=== PATIENT | male | born 1990 | race Caucasian/White ===

== ENCOUNTER → 2018-05-03 15:15 | Outpatient (CLI) | payer MEDICAID, SELFPAY ==
[2018-05-05 09:16] LABS: Hep A Ab, IgM Negative (Negative); Hepatitis B Core Antibody IgM Negative (Negative); Hepatitis B Surface Antigen Negative (Negative)
[2018-05-05 12:14] LABS: Hepatitis C Antibody 0.2 s/co ratio (0.0-0.9)
== END ==
PROVIDERS: Visit Provider Emergency Medicine
DX: Z20.5 Contact with and (suspected) exposure to viral hepatitis (principal)
CPT/HCPCS: 36415; 80074

== ENCOUNTER 2020-02-03 16:11 | Emergency (ER) | payer OTHER, SELFPAY ==
--- NOTE | 2020-02-03 16:06 | ECG_ITS ---
APPROVED REPORT Exam: Resting ECG HR:81 bpm ECG Measurements Heart Rate 81 AXES SC 166 P 71 QRSd 82 QRS 72 QT 348 T 53 QTc 404 <Conclusion> Normal sinus rhythm with sinus arrhythmia Minimal voltage criteria for LVH, may be normal variant Borderline ECG Electronically signed by : Lico Alicea, 02/04/2020 15:06:44
[2020-02-03 16:11] VITALS: BP 134/79; PULSE 101; RESP 17; TEMP 36.9; O2SAT 99; BMI 26.6
--- NOTE | 2020-02-03 16:14 | XR_ITS ---
PROCEDURE: XR CHEST 2V CLINICAL HISTORY: Chest Pain Chest pain, smoker COMPARISON: No exams were available for comparison FINDINGS: The cardiomediastinal silhouette and pulmonary vascularity are within normal limits. The lungs are clear without infiltrates, suspicious nodules, or pleural effusions. There is calcified granuloma in the left lower lobe medially at 7 mm. Faint nodular opacity is present in the left midlung laterally at 6 mm and could be due to a granuloma as well. Calcified nodes are present the left hilum. No acute bony findings IMPRESSION: No acute finding. Old granulomatous disease Dictated b Damian Obrien MD 02/03/2020 16:30 Damian Obrien MD in [place] 02/03/2020 16:30
[2020-02-03 16:35] LABS: Basophils # 0.1 K/mm3 (0-0.2); Basophils % 0.5 % (0.1-2.0); Eosinophils # 0.5 K/mm3 (0.0-0.4); Eosinophils % 3.9 % (0.1-12.0); Hematocrit 48.2 % (42.0-52.0); Hemoglobin 16.8 g/dL (14.1-18.0); Lymphocytes # 3.6 K/mm3 (0.7-4.5); Lymphocytes % 30.6 % (10-50); Mean Corpuscular HGB Conc 34.8 g/dL (31.8-35.4); Mean Corpuscular Hemoglobin 31.2 pg (27.0-31.2); Mean Corpuscular Volume 89.8 fl (80-94); Mean Platelet Volume 7.6 fl (7.4-10.4); Monocytes # 0.6 K/mm3 (0.1-1.0); Monocytes % 4.9 % (1.7-9.3); Neutrophils % 60.1 % (37.0-80.0); Platelet Count 357 K/mm3 (142-424); Red Blood Count 5.36 M/mm3 (4.60-6.20); Red Cell Distribution Width 13.9 % (11.5-17.5); White Blood Count 11.7 K/mm3 (4.8-10.8)
[2020-02-03 16:37] VITALS: BP 136/75; PULSE 86; O2SAT 96
[2020-02-03 16:39] LABS: Chloride 104 mmol/L (98-107); Sodium 140 mmol/L (136-145)
[2020-02-03 16:40] LABS: Potassium 3.8 mmoL/L (3.5-5.1)
[2020-02-03 16:42] LABS: Blood Urea Nitrogen 12 mg/dl (9-20); Creatinine Clearance Estimated 155 mL/min (50-200); Estimated Glomerular Filt Rate 113 ml/min (>60); GFR (African American) 136 ML/MIN (>60)
[2020-02-03 16:43] LABS: Anion Gap 11.8 mEq/L (5-15); Calcium 10.2 mg/dl (8.4-10.2); Carbon Dioxide 28 mmol/L (22.0-30.0); Glucose 100 mg/dl (74-100)
--- NOTE | 2020-02-03 16:58 | HMH.EDCP ---
ED Disposition Clinical Impression: Chest pain, Atypical chest pain, Costalchondritis Disposition: Home, Self-Care Condition on Discharge: Good Prescriptions: Pantoprazole Sodium [Protonix 40mg tablet] 40 mg PO DAILY 30 Days #30 tab Transmission Status: Pending to [facility] #[id number] Referrals: PCP,No [Primary Care Provider] - - Critical Care Critical Care Time: No Attestation: On 02/03/20, the high probability of a clinically significant, sudden or life threatening deterioration of the following system(s) required my full and direct attention, intervention and personal management. The time I documented below is in addition to time spent performing reported procedures but includes the following listed in this critical care notation. Medical Decision Making - Medical Records Medical records reviewed: Yes: I reviewed the patient's medical records. - Maicol Inquiry Pt receiving controlled substance: No Vital Signs: 02/03/20 16:11 02/03/20 16:37 Temperature 98.4 F Temperature Source Oral Pulse Rate [Right] 101 H 86 Respiratory Rate 17 Blood Pressure [Right Arm] 134/79 136/75 Blood Pressure Mean [Right Arm] 97 95 Blood Pressure Source [Right Arm] Automatic Cuff Blood Pressure Position [Right Arm] Sitting 02 Sat by Pulse Oximetry 99 96 Oxygen Delivery Method Room Air Room Air - Lab Data Lab results reviewed: Yes: I reviewed the patient's lab results. Lab Results 02/03/20 16:20: WBC 11.7 H, RBC 5.36, Hgb 16.8, Hct 48.2, MCV 89.8, MCH 31.2, MCHC 34.8, RDW 13.9, Plt Count 357, MPV 7.6, Neut % (Auto) 60.1, Lymph % (Auto) 30.6, [place] % (Auto) 4.9, Eos % (Auto) 3.9, Baso % (Auto) 0.5, Neut # (Auto) 7.0, Lymph # (Auto) 3.6, [place] # (Auto) 0.6, Eos # (Auto) 0.5 H, Baso # (Auto) 0.1 Result diagrams: 02/03/20 16:20 Orders (Tests/Meds): ORDERS Category Date Time Status Basic Metabolic Panel Stat Lab 02/03/20 16:20 Received Troponin I Q3H Lab 02/03/20 19:15 Ordered Troponin I Q3H Lab 02/03/20 22:15 Ordered Troponin I Stat Lab 02/03/20 16:20 Received - Radiology Data #1 Image(s): Chest Preliminary Findings: Normal/NAD - ECG Data Tracing #1 I reviewed this ECG and interpreted as documented below: Normal Sinus Rhythm: Yes - REN Score for Non-Stemi Age of Patient: <30 years old Chest Pain HPI - General Chief Complaint: Chest Pain Stated Complaint: chest pain Time Seen by Provider: 02/03/20 16:46 Mode of Arrival: Ambulatory Limitations: No Limitations Description of Symptoms (Recalled from ER Triage Doc. by RN): Pt states since this am he has had midsternal CP that hurts when he breathes in and coughs, denies fever, soa, or contact with the COVID19. - History of Present Illness HPI narrative: 29-year-old male presents the ED having some substernal chest pain. He states when he took deep breaths he may notice the chest pain he also states that the pain did radiate down his left arm. Patient states this pain is been going on for 2 to 3 days. Patient denies any other symptoms patient denies any other health conditions. Patient rates his pain 3 out of 10 classifies a sharp colicky pain that comes and goes exacerbation factors include increasing intrathoracic pressure and alleviating factors include rest.Patient denies any recent cough or shortness of breath, patient denies any sore throat or headache, patient denies any loss of taste or smell, patient denies any malaise or fatigue, patient denies any abdominal pain nausea vomiting or diarrhea. - Related Data Previous Rx's Medication Instructions Recorded amoxicillin 500 mg tablet 500 mg PO BID 10 Days #20 tab 01/24/20 Pantoprazole Sodium [Protonix 40mg 40 mg PO DAILY 30 Days #30 tab 02/03/20 tablet] Allergies Allergy/AdvReac Type Severity Reaction Status Date / Time No Known Allergies Allergy Verified 01/24/20 13:30 [facility] History - Hepatitis A Screen Drug use history?: No
[2020-02-03 16:59] LABS: Troponin I < 0.01 ng/ml (0.00-0.034)
[2020-02-03 17:47] VITALS: BP 136/80; PULSE 80; RESP 17; TEMP 36.7; O2SAT 100
== END 2020-02-03 17:48 | disposition home or self-care (01) ==
PROVIDERS: Emergency Provider Family Medicine
DX: R07.89 Other chest pain (principal); M94.0 Chondrocostal junction syndrome [Tietze]; F17.210 Nicotine dependence, cigarettes, uncomplicated
CPT/HCPCS: 71046; 80048; 84484; 85025; 93005; 99283

== ENCOUNTER 2020-03-14 12:36 | Emergency (ER) | payer OTHER, SELFPAY ==
--- NOTE | 2020-03-14 12:42 | HMH.EDUTC ---
[facility] [place] Disposition Clinical Impression: Bilateral otitis media Qualifiers: Otitis media type: suppurative Chronicity: acute Recurrence: non-recurrent Spontaneous tympanic membrane rupture: without spontaneous rupture Qualified Code(s): H66.003 - Acute suppurative otitis media without spontaneous rupture of ear drum, bilateral Disposition: Home, Self-Care Condition on Discharge: Good Instructions: DI for Otitis Media (Middle Ear Infection)-Child Prescriptions: predniSONE [Deltasone 20mg tablet] 20 mg PO BID 5 Days #10 tab Transmission Status: Pending to [facility] # Cefdinir [Omnicef 300mg Capsule] 300 mg PO BID #20 cap Transmission Status: Pending to [facility] # Pseudoephedrine HCl [Sudafed 12 Hour 120mg Tab] 120 mg PO Q12 10 Days #20 tab Transmission Status: Pending to [facility] # Referrals: Tomasz Pascal MD [Primary Care Provider] - Time of Disposition: 12:47 Medical Decision Making - Maicol Inquiry Pt receiving controlled substance: No [facility] [place] HPI - General Stated complaint: both ears hurt Time Seen by Provider: 03/14/20 12:44 - History of Present Illness Provider Complaint: Bilateral ear pain X 5-6 days. Started on Amoxil earlier this week by PCP with no improvement. No fever. Onset (ago): day(s) (6) Treatments prior to arrival: other (Amoxil) - Related Data Previous Rx's Medication Instructions Recorded promethazine 25 mg tablet 25 mg PO TID PRN #10 tab 03/05/20 amoxicillin 875 mg tablet 875 mg PO BID #20 tab 03/11/20 Cefdinir [Omnicef 300mg Capsule] 300 mg PO BID #20 cap 03/14/20 Pseudoephedrine HCl [Sudafed 12 120 mg PO Q12 10 Days #20 tab 03/14/20 Hour 120mg Tab] predniSONE [Deltasone 20mg 20 mg PO BID 5 Days #10 tab 03/14/20 tablet] Allergies Allergy/AdvReac Type Severity Reaction Status Date / Time No Known Allergies Allergy Verified 03/11/20 10:41 [facility] History - Hepatitis A Screen Attestation statement:: This patient has been screened for Hepatitis A risk factors. I have reviewed the patient's past medical history: Yes Medical History: Reports:: Gastroesophageal Reflux Disease(GERD) Denies:: Chronic Obstructive Pulmonary Disease (COPD), Diabetes Mellitus Type 1, Diabetes Mellitus Type 2, Hypertension Other Medical History: Reports: Sinus Problems Laterality Cases: Bilateral: Myringotomy (Ear Tubes) Other Surgeries: Yes: No Previous Surgery, Appendectomy Amputation: No Fractures: No - Social History Smoking Status: Current every day smoker Tobacco Type: cigarettes # Packs/Day (cigarettes): 1 Alcohol Intake: never Substance Use Type: denies use Occupational Status: employed Housing: house Household Members: family Family Hx:: Non-contributory ROS Obtained: Yes All systems reviewed & no additional complaints - Constitutional Constitutional: Denies fever(s) - ENT Ears, Nose, Mouth, and Throat: Reports otalgia Physical Exam - General General appearance: alert, in no apparent distress - Head Head exam: atraumatic, normocephalic, normal inspection - Eye Eye exam: Present: normal appearance, PERRL, EOMI - ENT ENT exam: Present: normal exam, normal oropharynx, mucous membranes moist, normal external ear exam - Expanded ENT Exam TM/Canal exam: Bilateral TM: erythema, bulging - Neck Neck exam: Present: normal inspection, full ROM, trachea midline. Absent: meningismus, lymphadenopathy - Chest Chest inspection: Present: normal inspection, symmetric chest wall rise. Absent: tenderness - Respiratory Respiratory exam: Present: normal lung sounds bilaterally. Absent: respiratory distress - Cardiovascular Cardiovascular exam: Present: regular rate, normal rhythm. Absent: JVD - Abdominal Exam Abdominal exam: Present: soft, normal bowel sounds. Absent: distention, tenderness, guarding - Extremities Exam Extremities exam: Present: normal inspection, full ROM, normal capillary refill.
[2020-03-14 12:43] VITALS: BP 137/75; PULSE 79; RESP 18; TEMP 36.6; O2SAT 97; BMI 26.6
[2020-03-14 12:52] VITALS: BP 137/75; PULSE 79; RESP 18; TEMP 36.6; O2SAT 97
== END 2020-03-14 12:53 | disposition home or self-care (01) ==
PROVIDERS: Emergency Provider Physician Assistant; PCP Emergency Medicine
DX: H66.003 Acute suppurative otitis media without spontaneous rupture of ear drum, bilateral (principal); K21.9 Gastro-esophageal reflux disease without esophagitis; F17.210 Nicotine dependence, cigarettes, uncomplicated
CPT/HCPCS: 99201

== ENCOUNTER → 2020-04-30 16:04 | Outpatient (CLI) | payer OTHER, SELFPAY ==
[2020-05-02 16:07] LABS: Covid-19 Nasal PCR Sendout Lex Not Detected
== END ==
PROVIDERS: PCP Nurse Practitioner Family; Visit Provider Nurse Practitioner Family
DX: Z03.818 Encounter for observation for suspected exposure to other biological agents ruled out (principal)
CPT/HCPCS: U0004

== ENCOUNTER → 2020-07-16 12:59 | Outpatient (CLI) | payer OTHER, SELFPAY ==
[2020-07-17 11:09] LABS: Covid-19 Nasal PCR Sendout P&C NEGATIVE
== END ==
PROVIDERS: PCP Emergency Medicine; Visit Provider Nurse Practitioner Family
DX: Z20.822 Contact with and (suspected) exposure to COVID-19 (principal)
CPT/HCPCS: U0004

== ENCOUNTER 2020-10-27 14:18 | Emergency (ER) | payer OTHER, SELFPAY ==
[2020-10-27 14:20] VITALS: BP 136/91; PULSE 86; RESP 19; TEMP 36.7; O2SAT 98; BMI 26.6
--- NOTE | 2020-10-27 15:13 | HMH.EDUTC ---
[facility] [place] Disposition Clinical Impression: Acute bronchitis Qualifiers: Bronchitis organism: unspecified organism Qualified Code(s): J20.9 - Acute bronchitis, unspecified Sinusitis Qualifiers: Sinusitis location: unspecified location Chronicity: acute Recurrence: non-recurrent Qualified Code(s): J01.90 - Acute sinusitis, unspecified Disposition: Home, Self-Care Condition on Discharge: Good Instructions: DI for Sinusitis, DI for Acute Bronchitis Additional Instructions: Drink plenty of fluids. Take tylenol or ibuprofen for pain or fever. Take the medications as directed. Follow up with your regular doctor. GO TO THE ER FOR ANY WORSENING SYMPTOMS Prescriptions: Brompheniramine/Pseudoephed/Dm [Bromfed Dm Cough Syrup] 5 ml PO Q6HP PRN #240 syrup PRN Reason: Cough Transmission Status: Received by [facility] #[id number] predniSONE [Prednisone 20mg Tab] 20 mg PO BID 4 Days #8 tab Transmission Status: Received by [facility] # Azithromycin [Z-Martin 250mg Tab*] 250 mg PO UD DOSE PK #6 tab Transmission Status: Received by [facility] # Referrals: Tomasz Pascal MD [Primary Care Provider] - Forms: Work/School Release Time of Disposition: 15:18 Medical Decision Making - Medical Records Medical records reviewed: No: I reviewed the patient's medical records. - Maicol Inquiry Pt receiving controlled substance: No Vital Signs: 10/27/20 14:20 10/27/20 15:31 Temperature 98.0 F 98.0 F Temperature Source Oral Pulse Rate 86 Pulse Rate [Right Brachial] 86 Respiratory Rate 19 19 Blood Pressure 136/91 H Blood Pressure [Right Arm] 136/91 H Blood Pressure Mean [Right Arm] 106 Blood Pressure Source [Right Arm] Automatic Cuff Blood Pressure Position [Right Arm] Sitting 02 Sat by Pulse Oximetry 98 Oxygen Delivery Method Room Air [facility] [place] HPI - General Stated complaint: congestion, sinus pain Time Seen by Provider: 10/27/20 14:25 Mode of Arrival: Ambulatory Source of Information: Patient Limitations: No Limitations Description of Symptoms (Recalled from Triage Doc. by RN): PATIENT C/O CHEST AND SINUS CONGESTION WITH BILATERAL EAR PAIN SINCE LAST NIGHT HEENT Symptoms (Recalled from RN notes): Yes Resp Symptoms (Recalled from RN notes): No Skin Symptoms (Recalled from RN notes): No MS Symptoms (Recalled from RN notes): No Functional Status (Recalled from RN notes): WNL - History of Present Illness Provider Complaint: He states that he has had sinus and chest congestion for the past 3 days - Related Data Previous Rx's Medication Instructions Recorded Azithromycin [Z-Martin 250mg Tab*] 250 mg PO UD DOSE PK #6 tab 10/27/20 Brompheniramine/Pseudoephed/Dm 5 ml PO Q6HP PRN #240 syrup 10/27/20 [Bromfed Dm Cough Syrup] predniSONE [Prednisone 20mg 20 mg PO BID 4 Days #8 tab 10/27/20 Tab] Allergies Allergy/AdvReac Type Severity Reaction Status Date / Time No Known Allergies Allergy Verified 07/16/20 11:32 - Worker's Comp Is this a Worker's Comp case?: No [facility] History - Hepatitis A Screen Drug use history?: No High risk sexual behaviors?: No History of sexually transmitted infection?: No Currently employed?: No Childcare worker?: No Do you have indoor plumbing?: Yes Do you have electricity?: Yes Attestation statement:: This patient has been screened for Hepatitis A risk factors. I have reviewed the patient's past medical history: Yes Medical History: Reports:: Gastroesophageal Reflux Disease(GERD) Denies:: Chronic Obstructive Pulmonary Disease (COPD), Diabetes Mellitus Type 1, Diabetes Mellitus Type 2, Hypertension Other Medical History: Reports: Sinus Problems Laterality Cases: Bilateral: Myringotomy (Ear Tubes) Other Surgeries: Yes: No Previous Surgery, Appendectomy Amputation: No Fractures: No - Social History Smoking Status: Current every day smoker Tobacco Type: cigarettes # Packs/Day (cigarettes): 1 Alcohol Intake: never
[2020-10-27 15:31] VITALS: BP 136/91; PULSE 86; RESP 19; TEMP 36.7; O2SAT 98
== END 2020-10-27 15:36 | disposition home or self-care (01) ==
PROVIDERS: Emergency Provider Nurse Practitioner Family; PCP Emergency Medicine
DX: J20.9 Acute bronchitis, unspecified (principal); J01.90 Acute sinusitis, unspecified; K21.9 Gastro-esophageal reflux disease without esophagitis; F17.210 Nicotine dependence, cigarettes, uncomplicated
CPT/HCPCS: 99202; G0463

== ENCOUNTER 2020-11-24 09:59 | Emergency (ER) | payer OTHER, SELFPAY ==
[2020-11-24 10:25] VITALS: BP 129/89; PULSE 78; RESP 14; TEMP 36.6; O2SAT 99; BMI 26.6
--- NOTE | 2020-11-24 10:30 | HMH.EDUTC ---
[facility] – [place], [place] Disposition Clinical Impression: Torticollis Disposition: Home, Self-Care Condition on Discharge: Good Instructions: Torticollis, DI for Torticollis Additional Instructions: Go home and rest. It would be best if you rested tomorrow too. No heavy lifting. No twisting. Take the oral medications as directed. The muscle relaxer (cyclobenzaprine-flexeril) will make you drowsy, so don't drive or operate heavy machinery after taking it. Follow up with your regular doctor. GO TO THE ER FOR ANY WORSENING SYMPTOMS OR CONCERN, ESPECIALLY BOWEL OR BLADDER ISSUES, SADDLE AREA NUMBNESS, FEVER, ETC Prescriptions: Cyclobenzaprine HCl [Cyclobenzaprine 10mg Tab] 10 mg PO BIDP PRN #20 tab PRN Reason: Muscle Spasm Transmission Status: Received by [facility] # methylPREDNISolone [Medrol] 4 mg PO DIRECTED 6 Days #21 tab.ds.pk Transmission Status: Received by [facility] # Referrals: Tomasz Pascal MD [Primary Care Provider] - Forms: Work/School Release Time of Disposition: 10:37 Medical Decision Making - Medical Records Medical records reviewed: No: I reviewed the patient's medical records. - Maicol Inquiry Pt receiving controlled substance: No Vital Signs: 11/24/20 10:25 11/24/20 10:54 Temperature 97.8 F 0 F L Temperature Source Oral Pulse Rate 0 L Pulse Rate [Right] 78 Respiratory Rate 14 0 L Blood Pressure 000/00 L Blood Pressure [Right Arm] 129/89 Blood Pressure Mean [Right Arm] 102 02 Sat by Pulse Oximetry 99 [facility] [place], [place] HPI - General Stated complaint: neck pain Time Seen by Provider: 11/24/20 10:30 Mode of Arrival: Ambulatory Source of Information: Patient Limitations: No Limitations Description of Symptoms (Recalled from Triage Doc. by RN): pt woke up with neck pain. it radiates from his lower neck to the base of his head. pt states its sharp and shooting, worsens with movement of his head to the side or looking down pain is 10/10. HEENT Symptoms (Recalled from RN notes): No Resp Symptoms (Recalled from RN notes): No Skin Symptoms (Recalled from RN notes): No MS Symptoms (Recalled from RN notes): Yes (neck pain) Functional Status (Recalled from RN notes): na - History of Present Illness Provider Complaint: He c/o neck pain and stiffness for the past 2 days. He denies any injury or recent falls or recent mva. He states that he woke up like this 2 days ago. Twisting his neck makes his pain worse. He denies any fever or chills. - Related Data Previous Rx's Medication Instructions Recorded Azithromycin [Z-Martin 250mg Tab*] 250 mg PO UD DOSE PK #6 tab 10/27/20 Brompheniramine/Pseudoephed/Dm 5 ml PO Q6HP PRN #240 syrup 10/27/20 [Bromfed Dm Cough Syrup] predniSONE [Prednisone 20mg 20 mg PO BID 4 Days #8 tab 10/27/20 Tab] Cyclobenzaprine HCl 10 mg PO BIDP PRN #20 tab 11/24/20 [Cyclobenzaprine 10mg Tab] methylPREDNISolone [Medrol] 4 mg PO DIRECTED 6 Days #21 11/24/20 tab.ds.pk Allergies Allergy/AdvReac Type Severity Reaction Status Date / Time No Known Allergies Allergy Verified 07/16/20 11:32 - Worker's Comp Is this a Worker's Comp case?: No [facility] History - Hepatitis A Screen Drug use history?: No High risk sexual behaviors?: No History of sexually transmitted infection?: No Currently employed?: No Childcare worker?: No Do you have indoor plumbing?: Yes Do you have electricity?: Yes Attestation statement:: This patient has been screened for Hepatitis A risk factors. I have reviewed the patient's past medical history: Yes Medical History: Reports:: Gastroesophageal Reflux Disease(GERD) Denies:: Chronic Obstructive Pulmonary Disease (COPD), Diabetes Mellitus Type 1, Diabetes Mellitus Type 2, Hypertension Other Medical History: Reports: Sinus Problems Laterality Cases: Bilateral: Myringotomy (Ear Tubes) Other Surgeries: Yes: No Previous Surgery, Appendectomy Amputation: No Fractures: No - Social History Smoking
[2020-11-24 10:54] VITALS: BP 000/00; PULSE 0; RESP 0; TEMP -17.7; TEMP 0
== END 2020-11-24 11:00 | disposition home or self-care (01) ==
PROVIDERS: Emergency Provider Nurse Practitioner Family; PCP Emergency Medicine
DX: M43.6 Torticollis (principal); K21.9 Gastro-esophageal reflux disease without esophagitis
CPT/HCPCS: 99202; G0463

== ENCOUNTER 2020-12-09 11:58 | Emergency (ER) | payer OTHER, SELFPAY ==
[2020-12-09 12:15] VITALS: BP 139/85; PULSE 93; RESP 14; TEMP 36.8; O2SAT 97; BMI 26.9
--- NOTE | 2020-12-09 12:32 | HMH.EDUTC ---
[facility] [place] Disposition Clinical Impression: Otitis media Qualifiers: Otitis media type: unspecified Laterality: left Qualified Code(s): H66.92 - Otitis media, unspecified, left ear Disposition: Home, Self-Care Condition on Discharge: Good Instructions: Middle Ear Infection, Amoxicillin Additional Instructions: *Monitor Temp, Over the counter Motrin or Tylenol as directed/as needed Tylenol every 4 hours and Motrin every 6 hours (as long as your family doctor has told you that you can take it) for fever or pain. and straight to ER if unable to lower temp less than 101.0 after medication given *Warm salt water gargles may help to soothe the throat *Throat Lozenges *Warm fluids like tea with honey may help to soothe the throat *Sleep elevated *Humidifier/Vaporizer *Flonase 2 sprays in each nostril daily but be aware that it may take 2-3 days before you notice improvement Your throat swab was sent for culture. Those results are typically sent to your primary care. Be sure to follow up in 2-3 days with your family doctor/primary care physician if no improvement so they can review those result and treat if necessary. If you don?t have a primary care doctor, I recommend you get one but in the mean time, you will have to return to a walk in clinic Follow up IMMEDIATELY for new or worsening symptoms or no Noticeable improvement over the next 48-72 hours. 911 for difficulty breathing or swallowing Prescriptions: Amoxicillin [Amoxicillin 875MG Tab] 875 mg PO Q12H #14 tab Transmission Status: Pending to [facility] # Fluticasone Propionate [Flonase 50mcg nasal spray 16gm] 1 spr NS DAILY #1 bottle Transmission Status: Pending to [facility] # Referrals: Tomasz Pascal MD [Primary Care Provider] - As needed Time of Disposition: 12:37 Medical Decision Making - Maicol Inquiry Pt receiving controlled substance: No Maicol was queried for this patient: No Vital Signs: 12/09/20 12:15 Temperature 98.2 F Temperature Source Oral Pulse Rate [Right] 93 H Respiratory Rate 14 Blood Pressure [Right Arm] 139/85 Blood Pressure Mean [Right Arm] 103 Blood Pressure Source [Right Arm] Automatic Cuff 02 Sat by Pulse Oximetry 97 - Lab Data Lab results reviewed: Yes: I reviewed the patient's lab results. [facility] [place] HPI - General Stated complaint: ear pain Time Seen by Provider: 12/09/20 12:33 Mode of Arrival: Ambulatory Source of Information: Patient Limitations: No Limitations Description of Symptoms (Recalled from Triage Doc. by RN): pt states he is having bilateral ear pain and a scratchy throat. his daughter recently had strep. HEENT Symptoms (Recalled from RN notes): Yes (bilateral ear aches and scratchy throat) Resp Symptoms (Recalled from RN notes): No Skin Symptoms (Recalled from RN notes): No MS Symptoms (Recalled from RN notes): No Functional Status (Recalled from RN notes): na - History of Present Illness Provider Complaint: Patient state that he has been having bilateral ear pain on and off for a couple of weeks and for the last two days it has continued to get worse especially in left ear State that he has also had scratchy throat and his daughter recently had strep throat and he wasnted to get tested - Related Data Previous Rx's Medication Instructions Recorded Azithromycin [Z-Martin 250mg Tab*] 250 mg PO UD DOSE PK #6 tab 10/27/20 Brompheniramine/Pseudoephed/Dm 5 ml PO Q6HP PRN #240 syrup 10/27/20 [Bromfed Dm Cough Syrup] predniSONE [Prednisone 20mg 20 mg PO BID 4 Days #8 tab 10/27/20 Tab] Cyclobenzaprine HCl 10 mg PO BIDP PRN #20 tab 11/24/20 [Cyclobenzaprine 10mg Tab] methylPREDNISolone [Medrol] 4 mg PO DIRECTED 6 Days #21 11/24/20 tab.ds.pk Amoxicillin [Amoxicillin 875MG 875 mg PO Q12H #14 tab 12/09/20 Tab] Fluticasone Propionate [Flonase 1 spr NS DAILY #1 bottle 12/09/20 50mcg nasal spray 16gm] Allergies Allergy/AdvReac Type Severity Reaction Status Date /
[2020-12-09 12:43] LABS: UTC Strep Screen (Rapid) Negative (Negative)
[2020-12-09 12:52] VITALS: BP 132/85; PULSE 92; RESP 14; TEMP 36.8
== END 2020-12-09 12:58 | disposition home or self-care (01) ==
PROVIDERS: Emergency Provider Nurse Practitioner; PCP Emergency Medicine
DX: H66.92 Otitis media, unspecified, left ear (principal); K21.9 Gastro-esophageal reflux disease without esophagitis; F17.210 Nicotine dependence, cigarettes, uncomplicated
CPT/HCPCS: 87880; 99202; G0463

== ENCOUNTER 2021-02-23 12:56 | Emergency (ER) | payer OTHER, SELFPAY ==
[2021-02-23 14:45] VITALS: BP 123/80; PULSE 61; RESP 18; TEMP 36.9; O2SAT 99; BMI 29.0
[2021-02-23 15:12] LABS: UTC Strep Screen (Rapid) Negative (Negative)
--- NOTE | 2021-02-23 15:19 | HMH.EDUTC ---
[facility] [place] Disposition Clinical Impression: Otitis media Qualifiers: Otitis media type: unspecified Laterality: bilateral Qualified Code(s): H66.93 - Otitis media, unspecified, bilateral Otitis externa Qualifiers: Otitis externa type: unspecified type Chronicity: unspecified Laterality: left Qualified Code(s): H60.92 - Unspecified otitis externa, left ear Disposition: Home, Self-Care Condition on Discharge: Good Instructions: Middle Ear Infection, DI for Otitis Externa Additional Instructions: Take medication as prescribed Use drops as prescribed Over the counter Motrin and/or Tylenol for fever or pain as directed on package Follow up with your Family Doctor if no improvement or any worsening of symptoms Return if needed Straight to ER if any life threatening symptoms Prescriptions: Amoxicillin [Amoxicillin 875MG Tab] 875 mg PO Q12H #20 tab Transmission Status: Pending to [facility] # Neomycin/Polymyxin B Sulf/Hc [Zxjfhood-Vwhjfgtet-AQ Otic Susp 10mL] 4 drops EAR-LEFT QID 7 Days #10 ml Transmission Status: Pending to [facility] # Referrals: Tomasz Pascal MD [Primary Care Provider] - As needed Time of Disposition: 15:25 Medical Decision Making - Maicol Inquiry Pt receiving controlled substance: No Maicol was queried for this patient: No Vital Signs: 02/23/21 14:45 Temperature 98.4 F Temperature Source Oral Pulse Rate [Right Brachial] 61 Respiratory Rate 18 Blood Pressure [Right Arm] 123/80 Blood Pressure Mean [Right Arm] 94 Blood Pressure Source [Right Arm] Automatic Cuff Blood Pressure Position [Right Arm] Sitting 02 Sat by Pulse Oximetry 99 Oxygen Delivery Method Room Air - Lab Data Lab results reviewed: Yes: I reviewed the patient's lab results. Lab Results 02/23/21 14:47: Strep Scn Rapid Clinic Negative Orders (Tests/Meds): ORDERS Category Date Time Status Strep Screen Confirmation Stat Micro 02/23/21 14:47 Received [facility] [place] HPI - General Stated complaint: sore throat ear pain Time Seen by Provider: 02/23/21 15:19 Mode of Arrival: Ambulatory Source of Information: Patient Limitations: No Limitations Description of Symptoms (Recalled from Triage Doc. by RN): PATIENT C/O BILATERAL EAR PAIN AND SORE THROAT X 2 DAYS. STATES HE WAS LYING IN GRAVEL AND THINKS HE MAY HAVE GOTTEN A PIECE OF GRAVEL IN LEFT EAR HEENT Symptoms (Recalled from RN notes): No Resp Symptoms (Recalled from RN notes): No Skin Symptoms (Recalled from RN notes): No MS Symptoms (Recalled from RN notes): No Functional Status (Recalled from RN notes): WNL - History of Present Illness Provider Complaint: Patient state that he has been having pain in both ears and throat for 2 days that has continued to get worse State that left ear is sore to the touch State sthat he was laying in gravel working on something when he thinks one may have went into his ear - Related Data Previous Rx's Medication Instructions Recorded Amoxicillin [Amoxicillin 875MG 875 mg PO Q12H #20 tab 02/23/21 Tab] Neomycin/Polymyxin B Sulf/Hc 4 drops EAR-LEFT QID 7 Days #10 ml 02/23/21 [Oomcdqob-Jqmvyrlwb-EJ Otic Susp 10mL] Allergies Allergy/AdvReac Type Severity Reaction Status Date / Time No Known Allergies Allergy Verified 12/09/20 12:19 - Worker's Comp Is this a Worker's Comp case?: No [facility] History - Hepatitis A Screen Drug use history?: No High risk sexual behaviors?: No History of sexually transmitted infection?: No Currently employed?: No Childcare worker?: No Do you have indoor plumbing?: Yes Do you have electricity?: Yes Attestation statement:: This patient has been screened for Hepatitis A risk factors. I have reviewed the patient's past medical history: Yes Medical History: Reports:: Gastroesophageal Reflux Disease(GERD) Denies:: Chronic Obstructive Pulmonary Disease (COPD), Diabetes Mellitus Type 1, Diabetes Mellitus Type 2, Hypertension Other Medical History:
[2021-02-23 15:27] VITALS: BP 123/80; PULSE 61; RESP 18; TEMP 36.9; O2SAT 99
== END 2021-02-23 15:29 | disposition home or self-care (01) ==
PROVIDERS: Emergency Provider Nurse Practitioner; PCP Emergency Medicine
DX: H66.93 Otitis media, unspecified, bilateral (principal); H60.92 Unspecified otitis externa, left ear; K21.9 Gastro-esophageal reflux disease without esophagitis; F17.210 Nicotine dependence, cigarettes, uncomplicated
CPT/HCPCS: 87880; 99202; G0463

== ENCOUNTER 2021-06-28 15:58 | Emergency (ER) | payer OTHER, SELFPAY ==
[2021-06-28 17:50] VITALS: BP 140/86; PULSE 72; RESP 18; TEMP 36.6; O2SAT 99; BMI 28.3
--- NOTE | 2021-06-28 18:23 | HMH.EDUTC ---
[facility] [place] Disposition Clinical Impression: Sinusitis Qualifiers: Sinusitis location: unspecified location Chronicity: unspecified Qualified Code(s): J32.9 - Chronic sinusitis, unspecified Disposition: Home, Self-Care Condition on Discharge: Good Instructions: Sinusitis, DI for Sinusitis, Middle Ear Infection Additional Instructions: *Monitor Temp, Over the counter Motrin or Tylenol as directed/as needed Tylenol every 4 hours and Motrin every 6 hours (as long as your family doctor has told you that you can take it) for fever or pain. and straight to ER if unable to lower temp less than 101.0 after medication given *Warm salt water gargles may help to soothe the throat *Throat Lozenges *Warm fluids like tea with honey may help to soothe the throat *Sleep elevated *Humidifier/Vaporizer *Flonase 2 sprays in each nostril daily but be aware that it may take 2-3 days before you notice improvement Follow up IMMEDIATELY for new or worsening symptoms or no Noticeable improvement over the next 48-72 hours. 911 for difficulty breathing or swallowing You were tested for today for COVID19 your test result should be back in the next 24-48 hours, you may Check your results on the [facility] My Health Portal if you have trouble logging on you may call You was given a handout with instructions for Self Quarantine and Self isolation for while you wait on test results and what to do if they are positive If you are positive the Health Dept will be contacting you also Make sure to take your Vitamins Vit. C Vit D and Zinc if you can take them Prescriptions: Amoxicillin/Potassium Clav [Augmentin 875-125 Tablet] 1 tab PO Q12H 10 Days #20 tab Transmission Status: Pending to [facility] # Fluticasone Propionate [Flonase 50mcg nasal spray 16gm] 1 spr NS DAILY #1 each Transmission Status: Pending to [facility] # methylPREDNISolone [Medrol 4mg tab] 4 mg PO DIRECTED #21 tab Transmission Status: Pending to [facility] # Referrals: Tomasz Pascal MD [Primary Care Provider] - As needed Forms: Work/School Release Time of Disposition: 18:31 Medical Decision Making - Maicol Inquiry Pt receiving controlled substance: No Maicol was queried for this patient: No Vital Signs: 06/28/21 17:50 Temperature 97.8 F Temperature Source Oral Pulse Rate [Right Brachial] 72 Respiratory Rate 18 Blood Pressure [Right Arm] 140/86 Blood Pressure Mean [Right Arm] 104 Blood Pressure Source [Right Arm] Automatic Cuff Blood Pressure Position [Right Arm] Sitting 02 Sat by Pulse Oximetry 99 Oxygen Delivery Method Room Air Orders (Tests/Meds): ORDERS Category Date Time Status Covid-19 Nasal PCR ([facility]) Routine Lab 06/28/21 17:56 Received [facility] [place] HPI - General Stated complaint: sore throat cough [place] congestion runny nose Time Seen by Provider: 06/28/21 18:23 Mode of Arrival: Ambulatory Source of Information: Patient Limitations: No Limitations Description of Symptoms (Recalled from Triage Doc. by RN): PATIENT C/O CONGESTION, EAR PAIN, SINUS PRESSURE AND HEADACHE X 4 DAYS HEENT Symptoms (Recalled from RN notes): Yes Resp Symptoms (Recalled from RN notes): No Skin Symptoms (Recalled from RN notes): No MS Symptoms (Recalled from RN notes): No Functional Status (Recalled from RN notes): WNL - Related Data Previous Rx's Medication Instructions Recorded Amoxicillin [Amoxicillin 875MG 875 mg PO Q12H #20 tab 02/23/21 Tab] Neomycin/Polymyxin B Sulf/Hc 4 drops EAR-LEFT QID 7 Days #10 ml 02/23/21 [Nppdkvxa-Xbanjsjqe-ET Otic Susp 10mL] Amoxicillin/Potassium Clav 1 tab PO Q12H 10 Days #20 tab 06/28/21 [Augmentin 875-125 Tablet] Fluticasone Propionate [Flonase 1 spr NS DAILY #1 each 06/28/21 50mcg nasal spray 16gm] methylPREDNISolone [Medrol 4mg 4 mg PO DIRECTED #21 tab 06/28/21 tab] Allergies Allergy/AdvReac Type Severity Reaction Status Date / Time No Known Allergies Allergy Kristina
[2021-06-28 18:55] VITALS: BP 140/86; PULSE 72; RESP 18; TEMP 36.6; O2SAT 99
== END 2021-06-28 19:01 | disposition home or self-care (01) ==
PROVIDERS: Emergency Provider Nurse Practitioner; PCP Emergency Medicine
DX: J32.9 Chronic sinusitis, unspecified (principal); K21.9 Gastro-esophageal reflux disease without esophagitis; F17.210 Nicotine dependence, cigarettes, uncomplicated; Z20.822 Contact with and (suspected) exposure to COVID-19
CPT/HCPCS: 99202; C9803; G0463; U0003; U0005

== ENCOUNTER 2022-01-01 15:13 | Emergency (ER) | payer OTHER, SELFPAY ==
[2022-01-01 15:20] VITALS: BP 138/88; PULSE 77; RESP 18; TEMP 36.5; O2SAT 98; BMI 26.2
--- NOTE | 2022-01-01 15:36 | HMH.EDUTC ---
[facility] [place] Disposition Clinical Impression: Nausea Bilateral otitis media Qualifiers: Otitis media type: suppurative Chronicity: acute Recurrence: non-recurrent Spontaneous tympanic membrane rupture: without spontaneous rupture Qualified Code(s): H66.003 - Acute suppurative otitis media without spontaneous rupture of ear drum, bilateral Disposition: Home, Self-Care Condition on Discharge: Good Instructions: DI for Otitis Media (Middle Ear Infection)-Child Prescriptions: Amoxicillin [Amoxicillin 875MG Tab] 875 mg PO Q12H #20 tab Transmission Status: Pending to [facility] # Ondansetron [Ondansetron Odt 8mg Tab] 8 mg PO TID PRN 10 Days #30 tab PRN Reason: Nausea Transmission Status: Pending to [facility] # Referrals: Tomasz Pascal MD [Primary Care Provider] - Time of Disposition: 15:42 Medical Decision Making - Maicol Inquiry Pt receiving controlled substance: No Vital Signs: 01/01/22 15:20 Temperature 97.7 F Temperature Source Oral Pulse Rate [Right Brachial] 77 Respiratory Rate 18 Blood Pressure [Right Arm] 138/88 Blood Pressure Mean [Right Arm] 104 Blood Pressure Source [Right Arm] Automatic Cuff Blood Pressure Position [Right Arm] Sitting 02 Sat by Pulse Oximetry 98 Oxygen Delivery Method Room Air [facility] [place] HPI - General Stated complaint: ear pain, stomach pain Time Seen by Provider: 01/01/22 15:36 Mode of Arrival: Ambulatory Source of Information: Patient Limitations: No Limitations Description of Symptoms (Recalled from Triage Doc. by RN): PATIENT C/O STOMACH ACHE, NAUSEA, AND BILATERAL EAR PAIN HEENT Symptoms (Recalled from RN notes): Yes Resp Symptoms (Recalled from RN notes): No Skin Symptoms (Recalled from RN notes): No MS Symptoms (Recalled from RN notes): No Functional Status (Recalled from RN notes): WNL - History of Present Illness Provider Complaint: Bilateral ear pain, stomach ache, nausea X 2 days. No fever. Denies sore thraot. No vomiting or diarrhea. Onset (ago): day(s) (2) Relieving factors: none Exacerbating factors: none Associated symptoms: denies other symptoms Treatments prior to arrival: none - Related Data Previous Rx's Medication Instructions Recorded Amoxicillin [Amoxicillin 875MG 875 mg PO Q12H #20 tab 02/23/21 Tab] Neomycin/Polymyxin B Sulf/Hc 4 drops EAR-LEFT QID 7 Days #10 ml 02/23/21 [Sbvkrgfa-Zsvrbglww-JI Otic Susp 10mL] Amoxicillin/Potassium Clav 1 tab PO Q12H 10 Days #20 tab 06/28/21 [Augmentin 875-125 Tablet] Fluticasone Propionate [Flonase 1 spr NS DAILY #1 each 06/28/21 50mcg nasal spray 16gm] methylPREDNISolone [Medrol 4mg 4 mg PO DIRECTED #21 tab 06/28/21 tab] Amoxicillin [Amoxicillin 875MG 875 mg PO Q12H #20 tab 01/01/22 Tab] Ondansetron [Ondansetron Odt 8mg 8 mg PO TID PRN 10 Days #30 tab 01/01/22 Tab] Allergies Allergy/AdvReac Type Severity Reaction Status Date / Time No Known Allergies Allergy Verified 12/09/20 12:19 - Worker's Comp Is this a Worker's Comp case?: No [facility] History - Hepatitis A Screen Attestation statement:: This patient has been screened for Hepatitis A risk factors. I have reviewed the patient's past medical history: Yes Medical History: Reports:: Gastroesophageal Reflux Disease(GERD) Denies:: Chronic Obstructive Pulmonary Disease (COPD), Diabetes Mellitus Type 1, Diabetes Mellitus Type 2, Hypertension Other Medical History: Reports: Sinus Problems Laterality Cases: Bilateral: Myringotomy (Ear Tubes) Other Surgeries: Yes: No Previous Surgery, Appendectomy Amputation: No Fractures: No - Social History Smoking Status: Current every day smoker Tobacco Type: cigarettes # Packs/Day (cigarettes): 1 Alcohol Intake: never Substance Use Type: denies use Occupational Status: other Housing: house Household Members: family Family Hx:: Non-contributory ROS Obtained: Yes All systems reviewed & no additional complaints - ENT Ears, No
[2022-01-01 15:46] VITALS: BP 138/88; PULSE 77; RESP 18; TEMP 36.5; O2SAT 98
== END 2022-01-01 15:49 | disposition home or self-care (01) ==
PROVIDERS: Emergency Provider Physician Assistant; PCP Emergency Medicine
DX: H66.93 Otitis media, unspecified, bilateral (principal); Z72.0 Tobacco use; R11.0 Nausea; H92.03 Otalgia, bilateral; R10.9 Unspecified abdominal pain; K21.9 Gastro-esophageal reflux disease without esophagitis
CPT/HCPCS: 99212; G0463

== ENCOUNTER 2022-07-21 13:13 | Emergency (ER) | payer OTHER, SELFPAY ==
[2022-07-21 13:45] VITALS: BP 133/83; PULSE 93; RESP 17; TEMP 36.8; O2SAT 100; BMI 24.5
[2022-07-21 14:18] LABS: UTC Strep Screen (Rapid) Negative (Negative)
--- NOTE | 2022-07-21 14:33 | EXP.UTC ---
Discharge Plan Disposition Patient Disposition: Home, Self-Care Condition: Good Prescriptions Prescriptions: New methylprednisolone [Medrol (Martin)] 4 mg tablets,dose pack See Rx Instructions .Route .COMPLEX 6 Days Qty: 21 0RF Rx Instructions: taper pack; amoxicillin-pot clavulanate 875-125 mg Tablet 1 tab PO Q12H Qty: 20 0RF Referrals Follow up/Referrals: Tomasz Pascal MD [Primary Care Provider] - See instructions Activity Restrictions/Add. Instructions Additional Instructions/Restrictions: *Monitor Temp, Over the counter Motrin or Tylenol as directed/as needed Tylenol every 4 hours and Motrin every 6 hours (as long as your family doctor has told you that you can take it) for fever or pain. and straight to ER if unable to lower temp less than 101.0 after medication given *Warm salt water gargles may help to soothe the throat *Throat Lozenges? *Warm fluids like tea with honey may help to soothe the throat? *Sleep elevated *Humidifier/Vaporizer *Bromfed may cause drowsiness. Know how it effects you (your child) before driving, caring for small child, or sending your child to school. Not other antihistamines/allergy medications while taking bromfed Your throat swab was sent for culture. Those results are typically sent to your primary care. Be sure to follow up in 2-3 days with your family doctor/primary care physician if no improvement so they can review those result and treat if necessary. If you don?t have a primary care doctor, I recommend you get one but in the mean time, you will have to return to a walk in clinic Follow up IMMEDIATELY for new or worsening symptoms or no Noticeable improvement over the next 48-72 hours. 911 for difficulty breathing or swallowing Clinical Impressions Clinical Impression: Otitis media Stand Alone Forms Stand Alone Forms: Work/School Release Instructions Patient Instructions: Sore Throat, Middle Ear Infection Discharge ED Provider: Marlys Montoya [facility] [place] H[place] General Stated complaint: Chest congestion head congestion Mode of Arrival: Ambulatory Source of Information: Patient Limitations: No Limitations Time Seen by Provider: 07/21/22 14:33 Description of Symptoms (Recalled from Triage Doc. by RN): PATIENT C/O CHEST CONGESTION, RUNNY NOSE AND COUGH X 2 DAYS HEENT Symptoms (Recalled from RN notes): Yes Resp Symptoms (Recalled from RN notes): Yes Skin Symptoms (Recalled from RN notes): No MS Symptoms (Recalled from RN notes): No Functional Status (Recalled from RN notes): WNL History of Present Illness Provider Complaint: Patient states that 3 of his kids has strep throat right now States that he has been having chest congestion, cough, runny nose, sore throat and ear pain and pressure States that today he wasnt feeling any better so he came in to get checked out Related Data Previous Rx's Medication Instructions Recorded amoxicillin 875 mg-potassium 1 tab PO Q12H #20 tabs 07/21/22 clavulanate 125 mg tablet methylprednisolone 4 mg tablets in See Rx Instructions .Route 07/21/22 a dose pack (Medrol (Martin)) .COMPLEX 6 days #21 tabs Allergies Allergy/AdvReac Type Severity Reaction Status Date / Time No Known Allergies Allergy Verified 06/30/22 15:20 Worker's Comp Is this a Worker's Comp case?: No [facility] Disclaimer: The information contained in this section may have been updated after the patient was seen, as this information can be updated by other users. 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
[2022-07-21 14:35] VITALS: BP 133/83; PULSE 93; RESP 17; TEMP 36.8; O2SAT 100
== END 2022-07-21 15:04 | disposition home or self-care (01) ==
PROVIDERS: Emergency Provider Nurse Practitioner; PCP Emergency Medicine
DX: H66.90 Otitis media, unspecified, unspecified ear (principal)
CPT/HCPCS: 87880; 99212; 99213; G0463

== ENCOUNTER 2022-08-03 14:25 | Emergency (ER) | payer OTHER, SELFPAY ==
--- NOTE | 2022-08-03 15:18 | EXP.UTC ---
Discharge Plan Disposition Patient Disposition: Home, Self-Care Condition: Good Prescriptions Prescriptions: New fluticasone propionate [Flonase Allergy Relief] 50 mcg/actuation spray,suspension 1 spray intranasal DAILY Qty: 16 0RF Rx Instructions: administer into each nostril No Action methylprednisolone [Medrol (Martin)] 4 mg tablets,dose pack See Rx Instructions .Route .COMPLEX 6 Days Qty: 21 0RF Rx Instructions: taper pack; amoxicillin-pot clavulanate 875-125 mg Tablet 1 tab PO Q12H Qty: 20 0RF Referrals Follow up/Referrals: Tomasz Pascal MD [Primary Care Provider] - See instructions Activity Restrictions/Add. Instructions Additional Instructions/Restrictions: *Monitor Temp, Over the counter Motrin or Tylenol as directed/as needed Tylenol every 4 hours and Motrin every 6 hours (as long as your family doctor has told you that you can take it) for fever or pain. and straight to ER if unable to lower temp less than 101.0 after medication given *Warm salt water gargles may help to soothe the throat *Throat Lozenges? *Warm fluids like tea with honey may help to soothe the throat? *Sleep elevated *Humidifier/Vaporizer Your throat swab was sent for culture. Those results are typically sent to your primary care. Be sure to follow up in 2-3 days with your family doctor/primary care physician if no improvement so they can review those result and treat if necessary. If you don?t have a primary care doctor, I recommend you get one but in the mean time, you will have to return to a walk in clinic Follow up IMMEDIATELY for new or worsening symptoms or no Noticeable improvement over the next 48-72 hours. 911 for difficulty breathing or swallowing Clinical Impressions Clinical Impression: Ear pressure Stand Alone Forms Stand Alone Forms: Work/School Release Instructions Patient Instructions: DI for Ear Pain-Adult, Sore Throat Discharge ED Provider: Marlys Montoya [facility] [place] General Stated complaint: Sore throat ear pain Time Seen by Provider: 08/03/22 15:18 History of Present Illness Provider Complaint: Patient states that he has not felt well for a couple of days States that he has been having bilateral ear pain/pressure and sore throat States that today his ears and throat was hurting worse so he came in to get checked Related Data Previous Rx's Medication Instructions Recorded amoxicillin 875 mg-potassium 1 tab PO Q12H #20 tabs 07/21/22 clavulanate 125 mg tablet methylprednisolone 4 mg tablets in See Rx Instructions .Route 07/21/22 a dose pack (Medrol (Martin)) .COMPLEX 6 days #21 tabs fluticasone propionate 50 1 spray intranasal DAILY #16 grams 08/03/22 mcg/actuation nasal spray,suspension (Flonase Allergy Relief) Allergies Allergy/AdvReac Type Severity Reaction Status Date / Time No Known Allergies Allergy Verified 06/30/22 15:20 [facility] Disclaimer: The information contained in this section may have been updated after the patient was seen, as this information can be updated by other users. Medical History (Updated 08/03/22 @ 15:34 by Marlys Montoya APRN) Sore throat Surgical History (Updated 07/21/22 @ 14:04 by Tenisha Myles RN) History of tympanostomy tube placement Social History (Updated 07/21/22 @ 14:04 by Tenisha Myles RN) Smoking Status: Current every day smoker tobacco type: cigarettes packs per day: 1 second hand exposure: Yes alcohol intake: never substance use type: denies use current occupational status: other Travel in the last 8 weeks: None household members: family housing: house ROS Obtained: Yes All systems reviewed & no additional complaints except as documented and Yes Systems reviewed as appropriate & no additional complaints except as documented Constitutional Constitutional: Reports system reviewed and no additional complaints, except as documented, Reports as per HPI
[2022-08-03 15:20] VITALS: BP 150/90; PULSE 94; RESP 18; TEMP 36.8; O2SAT 98; BMI 25.7
[2022-08-03 15:25] LABS: UTC Strep Screen (Rapid) Negative (Negative)
[2022-08-03 15:37] VITALS: BP 150/89; PULSE 89; RESP 18; TEMP 36.8; O2SAT 98
== END 2022-08-03 15:40 | disposition home or self-care (01) ==
PROVIDERS: Emergency Provider Nurse Practitioner; PCP Emergency Medicine
DX: H92.03 Otalgia, bilateral (principal)
CPT/HCPCS: 87880; 99212; G0463

== ENCOUNTER 2023-03-13 14:13 | Emergency (ER) | payer OTHER, SELFPAY ==
[2023-03-13 15:00] VITALS: BP 135/85; PULSE 93; RESP 18; TEMP 37.1; O2SAT 97; BMI 29.0
[2023-03-13 15:12] LABS: UTC Strep Screen (Rapid) Positive (Negative)
--- NOTE | 2023-03-13 15:16 | EXP.UTC ---
Discharge Plan Disposition Patient Disposition: Home, Self-Care Condition: Good Prescriptions Prescriptions: New amoxicillin [amoxicillin] 875 mg tablet 875 mg PO Q12H Qty: 20 0RF benzonatate [benzonatate] 100 mg capsule 100 mg PO TIDP PRN (Reason: Cough) Qty: 30 0RF prednisone 10 mg tablet 10 mg PO BID 3 Days Qty: 6 0RF No Action ondansetron 4 mg tablet,disintegrating 4 mg PO Q8H PRN (Reason: nausea and vomiting) Qty: 20 0RF methylprednisolone 4 mg tablets,dose pack See Rx Instructions PO PER PKG DIR Qty: 21 0RF Rx Instructions: PO PER PKG DIR svhlxbpwbsswcjj-dtvktwhlw-DP [Bromfed DM] 2-30-10 mg/5 mL syrup 5 ml PO Q4-6H PRN (Reason: sinus symptoms) Qty: 118 0RF azithromycin [Zithromax Z-Martin] 250 mg tablet See Rx Instructions PO .COMPLEX Qty: 6 0RF Rx Instructions: For 250 mg dose pack: take 500 mg today (day 1), then 250 mg for 4 days (days 2-5) PO omeprazole 40 mg capsule,delayed release(DR/EC) 40 mg PO DAILY Qty: 30 2RF famotidine 40 mg tablet 40 mg PO DAILY Qty: 30 2RF Referrals Follow up/Referrals: Tomasz Pascal MD [Primary Care Provider] - See instructions Activity Restrictions/Add. Instructions Additional Instructions/Restrictions: Drink plenty of fluids. Take tylenol or ibuprofen for pain or fever. Take the medications as directed. Follow up with your regular doctor. GO TO THE ER FOR ANY WORSENING SYMPTOMS Throw your tooth brush away and get a new one. Clinical Impressions Clinical Impression: Strep pharyngitis Stand Alone Forms Stand Alone Forms: Work/School Release Instructions Patient Instructions: Strep Throat, DI for Strep Throat Discharge ED Provider: Cruz Benítez [facility] General Stated complaint: congestion, ear pain Time Seen by Provider: 03/13/23 15:16 History of Present Illness Provider Complaint: He states that for the past 1 day he has had sore throat, body aches, chills, fever and malaise. Related Data Previous Rx's Medication Instructions Recorded azithromycin 250 mg tablet See Rx Instructions PO .COMPLEX #6 11/10/22 (Zithromax Z-Martin) tabs pjsxqkyblqyvrmt-beyprtilhtautrw-YE 5 ml PO Q4-6H PRN sinus symptoms 11/10/22 2 mg-30 mg-10 mg/5 mL oral syrup #118 mL (Bromfed DM) methylprednisolone 4 mg tablets in See Rx Instructions PO PER PKG DIR 11/10/22 a dose pack #21 tabs ondansetron 4 mg disintegrating 4 mg PO Q8H PRN nausea and 11/10/22 tablet vomiting #20 tabs amoxicillin 875 mg tablet 875 mg PO Q12H #20 tabs 03/13/23 benzonatate 100 mg capsule 100 mg PO TIDP PRN Cough #30 caps 03/13/23 famotidine 40 mg tablet 40 mg PO DAILY #30 tabs 03/13/23 omeprazole 40 mg capsule,delayed 40 mg PO DAILY #30 caps 03/13/23 release prednisone 10 mg tablet 10 mg PO BID 3 days #6 tabs 03/13/23 Allergies Allergy/AdvReac Type Severity Reaction Status Date / Time No Known Allergies Allergy Verified 03/13/23 15:23 [facility] Disclaimer: The information contained in this section may have been updated after the patient was seen, as this information can be updated by other users. Medical History Sore throat Surgical History History of tympanostomy tube placement Social History Smoking Status: Current every day smoker tobacco type: cigarettes packs per day: 1 second hand exposure: Yes alcohol intake: never substance use type: denies use current occupational status: other Travel in the last 8 weeks: None household members: family housing: house ROS Obtained: Yes All systems reviewed & no additional complaints except as documented Constitutional Constitutional: Reports chills and Reports fever(s) Eyes Eyes: Denies eye discharge ENT Ears, Nose, Mouth, and Throat: Reports as per HPI Cardiovascular Cardiovascular: Denies chest christine
[2023-03-13 15:48] VITALS: BP 135/85; PULSE 93; RESP 18; TEMP 36.6; O2SAT 97
== END 2023-03-13 15:48 | disposition home or self-care (01) ==
PROVIDERS: Emergency Provider Nurse Practitioner Family; PCP Emergency Medicine
DX: J02.0 Streptococcal pharyngitis (principal); R50.9 Fever, unspecified; R53.81 Other malaise; F17.210 Nicotine dependence, cigarettes, uncomplicated
CPT/HCPCS: 87880; 99212; 99214; G0463

== ENCOUNTER 2023-05-13 19:16 | Emergency (ER) | payer OTHER, SELFPAY ==
--- NOTE | 2023-05-13 19:21 | PC.NURSE ---
Will Rodriguez in room talking with patient at this time.
--- NOTE | 2023-05-13 19:25 | XR_ITS ---
PROCEDURE INFORMATION: Exam: XR Left Hand Exam date and time: 05/13/2023 7:24 PM Age: 32 years old Clinical indication: Pain; Hand; Left; Additional info: Nail puncture/ fb? TECHNIQUE: Imaging protocol: Radiologic exam of the left hand. Views: 3 or more views. COMPARISON: No relevant prior studies available. FINDINGS: Bones/joints: Old ulnar styloid fracture. No acute osseous injury. Soft tissues: There is some soft tissue swelling. No radiopaque foreign body is seen. IMPRESSION: No radiopaque foreign body or acute osseous abnormality.
--- NOTE | 2023-05-13 19:25 | XR_ITS ---
PROCEDURE INFORMATION: Exam: XR Right Ankle Exam date and time: 05/13/2023 7:22 PM Age: 32 years old Clinical indication: Pain; Ankle; Right; Additional info: Hammer injury TECHNIQUE: Imaging protocol: Radiologic exam of the right ankle. Views: 3 or more views. COMPARISON: No relevant prior studies available. FINDINGS: Bones/joints: Multiple views were obtained. The osseous structures appear intact with no evidence of acute fracture, dislocation, or malalignment. Joint spaces are preserved. No abnormal bone density or destructive lesions are noted. Soft tissues: Soft tissue swelling is observed, and further clinical correlation is advised. IMPRESSION: At the time of imaging, the skeletal radiograph demonstrates no acute osseous abnormalities but does show soft tissue swelling. Clinical correlation is strongly advised for a comprehensive assessment.
[2023-05-13 19:28] VITALS: RESP 18; TEMP 36.7; O2SAT 96; BMI 30.9
--- NOTE | 2023-05-13 19:28 | HMH.EDGENADL ---
Discharge Plan Disposition Patient Disposition: Home, Self-Care Prescriptions Prescriptions: New ibuprofen 800 mg tablet 800 mg PO TID PRN (Reason: pain) 7 Days Qty: 20 0RF cephalexin 500 mg capsule 500 mg PO QID 5 Days Qty: 20 0RF No Action omeprazole 40 mg capsule,delayed release(DR/EC) 40 mg PO DAILY Qty: 30 2RF famotidine 40 mg tablet 40 mg PO DAILY Qty: 30 2RF Referrals Follow up/Referrals: Tomasz Pascal MD [Primary Care Provider] - See instructions Activity Restrictions/Add. Instructions Additional Instructions/Restrictions: Return to the emergency department with any significant spreading redness or pus coming from your wound on your hand or any other concerns. Clinical Impressions Clinical Impression: Puncture wound of skin from metal nail, Ankle contusion Discharge ED Provider: Pita Solis General Adult HPI General Chief complaint: Extremity Injury, Upper Stated complaint: [id number] stuck nail LT hand nail Time Seen by Provider: 05/13/23 19:21 History of Present Illness HPI narrative: Patient is a 32-year-old male presents today with 2 different injuries. Was working on floors first injury was an accidental strike to the medial aspect of his right ankle with a metal hammer and had significant pain since that time in this region. Second injury he accidentally put his left hand into a osmin nail that was part of another board it punctured the volar aspect of his palm he was able to completely remove the nail. He is able to have normal flexion and extension without any neurovascular abnormalities from historical standpoint. His tetanus vaccination status is unknown. He did clean this extensively with soap and water right after this happened. Related Data Previous Rx's Medication Instructions Recorded famotidine 40 mg tablet 40 mg PO DAILY #30 tabs 03/13/23 omeprazole 40 mg capsule,delayed 40 mg PO DAILY #30 caps 03/13/23 release cephalexin 500 mg capsule 500 mg PO QID 5 days #20 caps 05/13/23 ibuprofen 800 mg tablet 800 mg PO TID PRN pain 7 days #20 05/13/23 tabs Allergies Allergy/AdvReac Type Severity Reaction Status Date / Time No Known Allergies Allergy Verified 04/19/23 15:04 [facility] Disclaimer: The information contained in this section may have been updated after the patient was seen, as this information can be updated by other users. Medical History (Updated 05/13/23 @ 19:28 by Pita Solis MD) Sore throat Strep pharyngitis Surgical History History of tympanostomy tube placement Family History (Updated 04/19/23 @ 15:05 by Brigitte Rawls) Other No significant family history Social History Smoking Status: Current every day smoker tobacco type: cigarettes packs per day: 1 second hand exposure: Yes alcohol intake: never substance use type: denies use current occupational status: other Travel in the last 8 weeks: None household members: family housing: house ROS Obtained: Yes All systems reviewed & no additional complaints except as documented Physical Exam General General appearance: alert Respiratory Respiratory exam: Present normal lung sounds bilaterally Cardiovascular Cardiovascular exam: Present regular rate; Absent tachycardia Extremities Exam Extremities exam: Present other (Left hand at the base of the ulnar aspect of the palm there is a 0.5 cm puncture wound without any significant erythema purulence retained foreign body etc. Neurovascular intact right ankle there is ecchymosis and tenderness over the distal aspect of the tibia at the junction of the medial malleolu) Neurological Exam Neurological exam: Present alert and oriented X3 Medical Decision Making Maicol Inquiry Pt receiving controlled substance: No Vital Signs: 05/13/23 19:28 05/13/23 19:34 05/13/23 19:48 Temperature 98
[2023-05-13 19:34] VITALS: BP 144/94; PULSE 120; RESP 18; TEMP 36.7; O2SAT 96
[2023-05-13 19:48] VITALS: BP 139/78; PULSE 90; RESP 18; TEMP 36.7; O2SAT 96
== END 2023-05-13 19:52 | disposition home or self-care (01) ==
PROVIDERS: Emergency Provider Student in an Organized Health Care Education/Training Program; PCP Emergency Medicine
DX: S90.01XA Contusion of right ankle, initial encounter (principal); W45.0XXA Nail entering through skin, initial encounter; W22.8XXA Striking against or struck by other objects, initial encounter; F17.210 Nicotine dependence, cigarettes, uncomplicated; S61.432A Puncture wound without foreign body of left hand, initial encounter
CPT/HCPCS: 73130; 73610; 90715; 96372; 99284

== ENCOUNTER → 2023-05-16 07:09 | Outpatient (CLI) | payer OTHER, SELFPAY ==
[2023-05-16 18:46] LABS: Coronavirus 19, PCR Not Detected (NotDetected); Influenza A, PCR Not Detected (NotDetected); Influenza B, PCR Not Detected (NotDetected)
== END ==
LOC: LAB.DROPOF 05-17 07:10
PROVIDERS: PCP Emergency Medicine; Visit Provider Emergency Medicine
DX: R05.9 Cough, unspecified (principal); R09.89 Other specified symptoms and signs involving the circulatory and respiratory systems
CPT/HCPCS: 87636

== ENCOUNTER 2023-08-18 20:16 | Outpatient (CLI) | payer OTHER, SELFPAY | END 2023-08-18 23:59 | LOC: LAB.DROPOF 20:16 | PROVIDERS: PCP Student in an Organized Health Care Education/Training Program; Visit Provider Student in an Organized Health Care Education/Training Program | DX: R05.9 Cough, unspecified (principal); R51.9 Headache, unspecified; H92.03 Otalgia, bilateral | CPT/HCPCS: 87635 ==

== ENCOUNTER 2023-09-08 18:34 | Outpatient (CLI) | payer OTHER, SELFPAY | END 2023-09-08 23:59 | LOC: LAB.DROPOF 18:34 | PROVIDERS: PCP Student in an Organized Health Care Education/Training Program; Visit Provider Student in an Organized Health Care Education/Training Program | DX: J02.9 Acute pharyngitis, unspecified (principal); R05.9 Cough, unspecified; Z20.828 Contact with and (suspected) exposure to other viral communicable diseases | CPT/HCPCS: 87070 ==

== ENCOUNTER 2023-10-11 15:16 | Outpatient (CLI) | payer OTHER, SELFPAY ==
[2023-10-11 18:00] LABS: Adenovirus,PCR Not Detected (NotDetected); Coronavirus 19, PCR Not Detected (NotDetected); Coronavirus 229E Not Detected (NotDetected); Coronavirus NL63 Not Detected (NotDetected); Coronavirus OC43 Not Detected (NotDetected); Coronovirus HKU1,PCR Not Detected (NotDetected); Human Metapneumovirus Not Detected (NotDetected); Influenza A, PCR Not Detected (NotDetected); Influenza AH1, 2009 Not Detected (NotDetected); Influenza AH1, PCR Not Detected (NotDetected); Influenza AH3,PCR Not Detected (NotDetected); Influenza B, PCR Not Detected (NotDetected); Parainfluenza 1, PCR Not Detected (NotDetected); Parainfluenza 2, PCR Not Detected (NotDetected); Parainfluenza 3, PCR Not Detected (NotDetected); Parainfluenza 4, PCR Not Detected (NotDetected); Respiratory Syncytial Virus Not Detected (NotDetected); Rhinovirus/Enterovirus Not Detected (NotDetected)
== END 2023-10-11 23:59 | disposition home or self-care (01) ==
LOC: LAB.DROPOF 10-12 15:17
PROVIDERS: PCP Nurse Practitioner Family; Visit Provider Nurse Practitioner Family
DX: R11.0 Nausea (principal); R05.1 Acute cough; B95.1 Streptococcus, group B, as the cause of diseases classified elsewhere; H92.03 Otalgia, bilateral; Z20.828 Contact with and (suspected) exposure to other viral communicable diseases
CPT/HCPCS: 87070; 87632; 87635

== ENCOUNTER 2023-10-25 18:00 | Outpatient (CLI) | payer OTHER, SELFPAY ==
[2023-10-25 18:16] LABS: Adenovirus,PCR Not Detected (NotDetected); Coronavirus 19, PCR Not Detected (NotDetected); Coronavirus 229E Not Detected (NotDetected); Coronavirus NL63 Not Detected (NotDetected); Coronavirus OC43 Not Detected (NotDetected); Coronovirus HKU1,PCR Not Detected (NotDetected); Human Metapneumovirus Not Detected (NotDetected); Influenza A, PCR Not Detected (NotDetected); Influenza AH1, 2009 Not Detected (NotDetected); Influenza AH1, PCR Not Detected (NotDetected); Influenza AH3,PCR Not Detected (NotDetected); Influenza B, PCR Not Detected (NotDetected); Parainfluenza 1, PCR Not Detected (NotDetected); Parainfluenza 2, PCR Not Detected (NotDetected); Parainfluenza 3, PCR Not Detected (NotDetected); Parainfluenza 4, PCR Not Detected (NotDetected); Respiratory Syncytial Virus Not Detected (NotDetected); Rhinovirus/Enterovirus Not Detected (NotDetected)
== END 2023-10-25 23:59 | disposition home or self-care (01) ==
LOC: LAB.DROPOF 10-26 08:36
PROVIDERS: PCP Nurse Practitioner Family; Visit Provider Nurse Practitioner Family
DX: R11.0 Nausea (principal)
CPT/HCPCS: 87070; 87632; 87635

== ENCOUNTER 2024-02-08 13:15 | Outpatient (CLI) | payer OTHER, SELFPAY ==
[2024-02-08 18:22] LABS: Coronavirus 19, PCR Not Detected (NotDetected); Influenza A, PCR Not Detected (NotDetected); Influenza B, PCR Not Detected (NotDetected)
== END 2024-02-08 23:59 | disposition home or self-care (01) ==
LOC: LAB.DROPOF 02-10 18:44
PROVIDERS: PCP Family Medicine; Visit Provider Family Medicine
DX: R05.1 Acute cough (principal); J02.9 Acute pharyngitis, unspecified; F17.210 Nicotine dependence, cigarettes, uncomplicated
CPT/HCPCS: 87070; 87636

== ENCOUNTER 2024-02-12 08:41 | Emergency (ER) | payer OTHER, SELFPAY ==
[2024-02-12 08:42] VITALS: BP 137/93; PULSE 112; RESP 18; TEMP 36.7; O2SAT 99; BMI 27.3
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
[2024-02-12] MEDS: IBUPROFEN 400 MG TABLET 800 MG PO (09:09)
[2024-02-12] MEDS: ACETAMINOPHEN 500MG TAB 1000 MG PO (09:09)
[2024-02-12 09:20] VITALS: BP 137/94; PULSE 90; RESP 18; TEMP 36.7; O2SAT 97
== END 2024-02-12 09:23 | disposition home or self-care (01) ==
PROVIDERS: Emergency Provider Student in an Organized Health Care Education/Training Program; PCP Family Medicine
DX: S20.212A Contusion of left front wall of thorax, initial encounter (principal); V49.40XA Driver injured in collision with unspecified motor vehicles in traffic accident, initial encounter; Y92.410 Unspecified street and highway as the place of occurrence of the external cause
CPT/HCPCS: 71046; 99283

== ENCOUNTER 2024-03-20 17:31 | Outpatient (CLI) | payer OTHER, SELFPAY ==
[2024-03-20 17:16] LABS: Adenovirus,PCR Not Detected (NotDetected); Bordetella Pertussis Not Detected (NotDetected); Chlamydophila Pneumoniae, PCR Not Detected (NotDetected); Coronavirus 19, PCR Not Detected (NotDetected); Coronavirus 229E Not Detected (NotDetected); Coronavirus NL63 Not Detected (NotDetected); Coronavirus OC43 Not Detected (NotDetected); Coronovirus HKU1,PCR Not Detected (NotDetected); Human Metapneumovirus Not Detected (NotDetected); Influenza A, PCR Not Detected (NotDetected); Influenza AH1, 2009 Not Detected (NotDetected); Influenza AH1, PCR Not Detected (NotDetected); Influenza AH3,PCR Not Detected (NotDetected); Influenza B, PCR Not Detected (NotDetected); Mycoplasma Pneumoniae, PCR Not Detected (NotDetected); Parainfluenza 1, PCR Not Detected (NotDetected); Parainfluenza 2, PCR Not Detected (NotDetected); Parainfluenza 3, PCR Not Detected (NotDetected); Parainfluenza 4, PCR Not Detected (NotDetected); Respiratory Syncytial Virus Not Detected (NotDetected); Rhinovirus/Enterovirus Not Detected (NotDetected)
== END 2024-03-20 23:59 | disposition home or self-care (01) ==
LOC: LAB.DROPOF 17:32
PROVIDERS: PCP Nurse Practitioner Family; Visit Provider Nurse Practitioner Family
DX: B34.9 Viral infection, unspecified (principal)
CPT/HCPCS: 87070; 87265; 87486; 87581; 87632; 87635

== ENCOUNTER 2024-05-09 14:50 | Outpatient (CLI) | payer OTHER, SELFPAY | END 2024-05-09 23:59 | disposition home or self-care (01) | LOC: LAB.DROPOF 05-10 07:24 | PROVIDERS: PCP Student in an Organized Health Care Education/Training Program; Visit Provider Student in an Organized Health Care Education/Training Program | DX: J02.9 Acute pharyngitis, unspecified (principal); Z72.0 Tobacco use | CPT/HCPCS: 87070 ==

== ENCOUNTER 2024-06-12 14:46 | Outpatient (CLI) | payer OTHER, SELFPAY ==
[2024-06-12 18:12] LABS: Coronavirus 19, PCR Not Detected (NotDetected); Influenza A, PCR Not Detected (NotDetected); Influenza B, PCR Not Detected (NotDetected)
== END 2024-06-12 23:59 | disposition home or self-care (01) ==
LOC: LAB.DROPOF 06-13 10:21
PROVIDERS: PCP Family Medicine; Visit Provider Family Medicine
DX: R05.9 Cough, unspecified (principal); J02.9 Acute pharyngitis, unspecified; Z72.0 Tobacco use
CPT/HCPCS: 87070; 87077; 87636

== ENCOUNTER 2024-08-10 12:29 | Emergency (ER) | payer OTHER, SELFPAY ==
[2024-08-10 12:30] VITALS: BP 147/83; PULSE 98; RESP 18; TEMP 36.5; O2SAT 99; BMI 29.0
[2024-08-10 13:11] LABS: Coronavirus 19, PCR Not Detected (NotDetected); Influenza A, PCR Not Detected (NotDetected); Influenza B, PCR Not Detected (NotDetected)
[2024-08-10 13:19] VITALS: BP 139/80; PULSE 89; RESP 18; TEMP 36.6; O2SAT 99
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
== END 2024-08-10 13:27 | disposition home or self-care (01) ==
PROVIDERS: Emergency Provider Student in an Organized Health Care Education/Training Program; PCP Student in an Organized Health Care Education/Training Program
DX: J06.9 Acute upper respiratory infection, unspecified (principal); R05.9 Cough, unspecified; R11.0 Nausea; J02.9 Acute pharyngitis, unspecified; R51.9 Headache, unspecified; R19.7 Diarrhea, unspecified; M79.10 Myalgia, unspecified site; H92.03 Otalgia, bilateral; R09.89 Other specified symptoms and signs involving the circulatory and respiratory systems; R68.83 Chills (without fever); F17.210 Nicotine dependence, cigarettes, uncomplicated; Z20.828 Contact with and (suspected) exposure to other viral communicable diseases
CPT/HCPCS: 87636; 99283

== ENCOUNTER 2025-01-06 02:34 | Emergency (ER) | payer OTHER, SELFPAY ==
[2025-01-06 03:00] VITALS: BP 139/82; PULSE 89; O2SAT 97
[2025-01-06 03:22] VITALS: BP 139/82; PULSE 92; RESP 20; TEMP 36.9; O2SAT 99; BMI 29.0
[2025-01-06 03:30] VITALS: BP 142/82; PULSE 84; O2SAT 98
--- NOTE | 2025-01-06 03:50 | PC.NURSE ---
Called [facility] for an ophthalmology consult for pt. Said they would call back
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
[2025-01-06] MEDS: FLUORESCEIN SODIUM 1MG STRIP 1 MG OP (04:13)
[2025-01-06] MEDS: ERYTHROMYCIN BASE 1 GM OINT...G. OP (04:13)
[2025-01-06] MEDS: TETRACAINE 0.5% OPTH SOL 15ML OP (04:14)
[2025-01-06 04:21] VITALS: BP 142/82; PULSE 84; RESP 20; TEMP 36.7; O2SAT 98
== END 2025-01-06 04:21 | disposition home or self-care (01) ==
PROVIDERS: Emergency Provider Emergency Medicine; PCP Student in an Organized Health Care Education/Training Program
DX: S05.02XA Injury of conjunctiva and corneal abrasion without foreign body, left eye, initial encounter (principal); H57.12 Ocular pain, left eye; W20.8XXA Other cause of strike by thrown, projected or falling object, initial encounter; W44.F9XA Other object of natural or organic material, entering into or through a natural orifice, initial encounter
CPT/HCPCS: 99284

== ENCOUNTER 2025-01-08 12:20 | Emergency (ER) | payer OTHER, SELFPAY ==
[2025-01-08 12:28] VITALS: BP 132/90; PULSE 87; RESP 18; TEMP 36.8; O2SAT 98; BMI 29.0
[2025-01-08 12:30] VITALS: BP 128/82; PULSE 81; O2SAT 96
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
[2025-01-08 13:00] VITALS: BP 126/75; PULSE 77; O2SAT 97
--- NOTE | 2025-01-08 13:11 | PC.NURSE ---
calling [facility] at this time.
[2025-01-08 13:15] VITALS: BP 126/75; PULSE 77; O2SAT 98
--- NOTE | 2025-01-08 13:17 | PC.NURSE ---
will call back when they have a Doctor o/p.
--- NOTE | 2025-01-08 13:22 | PC.NURSE ---
called back and Dr Jones in opthalmology is speaking with Dr Dyer at this time
[2025-01-08 13:30] VITALS: BP 117/73; PULSE 78; O2SAT 96
[2025-01-08] MEDS: FLUORESCEIN SODIUM 1MG STRIP 1 MG OP (13:50)
[2025-01-08] MEDS: TETRACAINE 0.5% OPTH SOL 15ML OP (13:51)
--- NOTE | 2025-01-08 14:01 | PC.NURSE ---
called back and is speaking with Dr Dyer
[2025-01-08 14:17] VITALS: BP 116/75; PULSE 78; RESP 16; TEMP 37; O2SAT 99
== END 2025-01-08 14:18 | disposition short-term general hospital (02) ==
PROVIDERS: Emergency Provider Student in an Organized Health Care Education/Training Program
DX: H16.012 Central corneal ulcer, left eye (principal); S05.02XA Injury of conjunctiva and corneal abrasion without foreign body, left eye, initial encounter; W22.8XXA Striking against or struck by other objects, initial encounter
CPT/HCPCS: 99285